=== PATIENT | male | born 1980 | race Two or more races ===

== ENCOUNTER 2023-01-25 10:37 | Emergency (ER) | payer MEDICAID, SELFPAY ==
--- NOTE | ~2023-01-25 | CT_ITS ---
EXAMINATION: CT HEAD WITHOUT CONTRAST CLINICAL INFORMATION: Mental status change. COMPARISON: None available. TECHNIQUE: Contiguous axial imaging was performed from the skull base to vertex without intravenous administration of contrast. This CT examination was performed using dose optimization techniques as appropriate, variously including the following: *Automated exposure control *Adjustment of mA and/or kV according to patient size (this includes techniques or standardized protocols for targeted exams where dose is matched to indication/reason for exam; i.e. extremities or head) *Use of iterative reconstruction technique DLP: 775 mGy-cm FINDINGS: The brain parenchyma has normal attenuation. The martínez-white matter differentiation is well preserved. No evidence of an acute major vascular territory infarction. No intracranial hemorrhage, extra-axial fluid collection, focal mass effect or midline shift. The ventricles have normal size and configuration; no hydrocephalus. The brainstem and cerebellum have a normal appearance. The cerebellar tonsils are in normal position. The calvarium is intact. Mild amount mucus/mucosal thickening of some of the bilateral ethmoid air cells. Otherwise, the visualized paranasal sinuses, mastoid air cells and middle ear cavities are well aerated. The orbits and globes are unremarkable. The temporomandibular joints are normal. CT/CT head/brain wo IV con IMPRESSION: No acute intracranial pathology.
[2023-01-25 10:41] VITALS: BP 160/84; PULSE 81; RESP 16; TEMP 36.8; O2SAT 92; BMI 34.6
[2023-01-25 10:53] VITALS: PULSE 83; RESP 15; O2SAT 95
--- NOTE | 2023-01-25 10:57 | MHC.EDTECH ---
POC obtained 101 RN aware
[2023-01-25 11:00] LABS: Glucose, Whole Blood 101 mg/dL (60-115)
--- NOTE | 2023-01-25 11:05 | ED.GENADULT ---
HPI - General Adult General Chief complaint: ETOH/Substance Use Stated complaint: ETOH? Time Seen by Provider: 01/25/23 10:47 Source: patient Mode of arrival: ambulatory Limitations: no limitations History of Present Illness HPI narrative: This is a 42 years old brought in by the girfriend the because of confusion. Girlfriend states the patient was cough confused this morning she is not sure if he has been drinking or using drugs. There is no reported fever no reported vomiting no reported diarrhea patient arrived ambulatory to the emergency room a he states that he feels good Onset (ago): hour(s) (4) Radiation: non-radiation Severity: mild Pain Consistency: constant Relieving factors: none Exacerbating factors: none Related Data Allergies Allergy/AdvReac Type Severity Reaction Status Date / Time No Known Allergies Allergy Verified 01/25/23 10:39 Review of Systems Constitutional: Constitutional: Reports no additional constitutional complaints ENT: Reports as per HPI Cardiovascular: Cardiovascular: Reports no additional cardiovascular complaints Respiratory: Respiratory: Reports no additional respiratory complaints Gastrointestinal: Gastrointestinal: Reports no additional gastrointestinal complaints [facility] Past Medical History Attestation statement: The following information was validated with the patient. [facility] Narrative: denies Social History Social History Advance Directives: No Physical Exam ED Vital Signs: Vital Signs - 24 hr 01/25/23 10:41 01/25/23 10:53 01/25/23 14:35 Temperature 98.3 F Pulse Rate 81 83 94 Respiratory Rate 16 15 15 Blood Pressure 160/84 H 149/77 H Pulse Oximetry 92 95 97 Oxygen Delivery Method Room Air Room Air Room Air BMI result Body Mass Index 34.6 Const General: cooperative, comfortable, no acute distress, well developed, alert, awake and Physically active Nutritional Appearance: well nourished Limitations: no limitations [facility] Head: Yes normal to inspection Ears: hearing grossly normal bilaterally General nose exam: Normal nares present Face and sinus: Yes normal facial exam Mouth: Normal oral and palatal mucosa present Throat: Yes posterior oropharynx normal Neck Neck: Yes normal visual inspection, Yes full ROM and Yes no lymphadenopathy Chest Chest palpation & inspection: normal inspection of the chest Resp Effort & Inspection: normal respiratory effort Auscultation: clear to auscultation bilaterally Cardio Jugular venous distension: no JVD Rate: regular rate Rhythm: regular rhythm GI Inspection: Yes normal to inspection Palpation (GI): Soft to palpation, not firm, nontender and no guarding Percussion: Yes normal to percussion General: Yes no CVA tenderness Back/Spine/Pelvis Back: no CVA tenderness Skin General skin exam: no rashes or lesions noted and elasticity normal Lesions: no lesions Rashes: rash noted Neuro Other: No focal deficit cranial nerve 2-12 intact no strength in the lower extremity or upper extremity Course Reevaluation(s) Reevaluation #1: doing better eating dinner,DIEUDONNE pos for cocaine and pos for Phencyclidine. He is refusing detox He is not SI and HI Time: 14:09 Reevaluation #2: continue to improve states that he used drugs because mother 1 Month ago,but he is not SI nor HI . States that he would like to be d/c he does not want to talk to crisis he is not SI and HI. At this time his gait is stable he has decision making capacity Time: 15:52 Reevaluation #3: girlfriend here to pick him up Time: 16:16 Additional Reevaluation(s): girfriend here to pick him up Medications Administered Discontinued Medications Generic Name Dose Route Start Last Admin Trade Name Freq PRN Reason Stop Dose Admin Sodium Chloride 1,000 mls @ 999 mls/hr 01/25/23 11:00 01/25/23 13:45 Ns IVCONT 01/25/23 12:00 Infused .Q1H1M DOROTHY Infusion Sodium Chloride 1,000 mls @ 999 mls/hr 01/25/23 11:45 01/25/23 15:39 Ns IVCONT 01/25/23 12:45 Infused .Q1H1M DOROTHY Infusion Medical Decision Making Medical Decision Making [facility] Narrative: Patient presented with mental status changes will obtain labs imaging toxicology study in reassessed Differential Diagnosis Differential Diagnoses: The differential diagnosis associated with the presentation includes Alcohol intoxication/drug abuse/a subdural hematoma/epidural hematoma Lab Data [facility] Lab Attestation statement: I reviewed the patient's lab results. 01/25/23 11:09 01/25/23 11:09 Labs: Lab Results 01/25/23 01/25/23 01/25/23 Range/Units 10:56 11:09 12:39 WBC 7.8 (4.8-10.8) X10*3/uL RBC 5.18 (4.60-5.80) X10*6/uL Hgb 15.1 (14.0-18.0) g/dl Hct 43.9 (42.0-52.0) % MCV 84.7 (80.0-98.0) fL MCH 29.2 (27.0-33.0) pg MCHC 34.4 (31.0-36.0) g/dl RDW 12.8 (11.0-16.0) % Plt Count 215 (160-400) X10*3/uL MPV 10.2 (9.4-12.4) fL Immature Gran % (Auto) 0.3 (0.0-0.4) % Neut % (Auto) 62.3 (45-73) % Lymph % (Auto) 27.0 (20-40) % [place] % (Auto) 7.3 (2-11) % Eos % (Auto) 2.6 (0-4) % Baso % (Auto) 0.5 (0-2) % Lymph # (Auto) 2.1 (1.2-4.9) X10*3/uL [place] # (Auto) 0.6 (0.1-1.2) X10*3/uL Eos # (Auto) 0.2 (0.0-0.4) X10*3/uL Baso # (Auto) 0.0 (0.0-0.2) X10*3/uL Abs Immat Gran (auto) 0.02 (0.00-0.03) X10*3/uL Absolute Neuts (auto) 4.9 (2.0-8.3) x10*3/uL Absolute Nucleated RBC 0.000 (0.0-0.012) X10*3/uL Nucleated RBC % (auto) 0.0 (0.0-0.2) /100WBC Sodium 138 (135-145) mmol/L Potassium 3.8 (3.3-5.1) mmol/L Chloride 106 (96-108) mmol/L Carbon Dioxide 24 (22-29) mmol/L Anion Gap 12 (12-20) BUN 9 (9-16) mg/dL Creatinine 0.94 (0.5-1.4) mg/dL Estim Creat Clear Calc 137.2 Estimated GFR > 60 POC Glucose 101 (60-115) mg/dL Random Glucose 95 (60-115) mg/dL Calcium 8.8 (8.4-10.2) mg/dL Total Bilirubin 0.3 (0.0-1.0) mg/dL AST 15 (5-37) U/L ALT 16 (0-40) U/L Alkaline Phosphatase 78 (39-117) U/L Troponin I High Sens < 2.7 (<3.5-35.0) ng/L Total Protein 6.8 (6.5-8.0) g/dL Albumin 4.2 (3.5-5.0) g/dL Urine Color Yellow Urine Appearance Clear Urine pH 6.5 (5.0-9.0) Ur Specific [place] <= 1.005 (1.005-1.025) Urine Protein Negative (Neg-Trace) mg/dL Urine Glucose (UA) Negative (Negative) mg/dL Urine Ketones Negative (Negative) mg/dL Urine Blood Negative (Negative) Urine Nitrite Negative (Negative) Ur Leukocyte Esterase Negative (Negative) Urine RBC 0-2 (0-2) /HPF Urine WBC 0-5 (0-5) /HPF Ur Squamous Epith Cells 0-2 (0-2) /HPF Urine Bacteria None Seen (None Seen) Hyaline Casts 0-2 (0-2) /LPF Urine Opiates Screen Not Detected (Not Detect) Urine Fentanyl Screen Not Detected (Not Detect) Ur Barbiturates Screen Not Detected (Not Detect) Ur Phencyclidine Scrn POSITIVE H (Not Detect) Ur Amphetamines Screen Not Detected (Not Detect) U Benzodiazepines Scrn Not Detected (Not Detect) Urine Cocaine Screen POSITIVE H (Not Detect) U Marijuana (THC) Screen Not Detected (Not Detect) Ethyl Alcohol 11 mg/dL Independent Historian Clinical information obtained from an independent historian. History obtained from or confirmed by: Friend Discharge Plan Discharge Clinical Impression: Drug abuse Patient Disposition: Home, Self-Care Instructions: Polysubstance Abuse (ED) Referrals: Physician,Unknown J [Primary Care Provider] - 2 days
[2023-01-25 11:15] LABS: MANUAL DIFF FLAG NO
[2023-01-25] MEDS: 0.9 % Sodium Chloride 1,000 ML 999 ML IVCONT ×2 (11:15→13:45)
[2023-01-25 11:16] LABS: Basophils Percent Auto 0.5 % (0-2); Eosinophils Absolute Auto 0.2 X10*3/uL (0.0-0.4); Eosinophils Percent Auto 2.6 % (0-4); Hematocrit 43.9 % (42.0-52.0); Hemoglobin 15.1 g/dl (14.0-18.0); Imm Gran Abs Auto 0.02 X10*3/uL (0.00-0.03); Imm Gran Pct Auto 0.3 % (0.0-0.4); Lymphocytes Absolute Auto 2.1 X10*3/uL (1.2-4.9); Mean Corpuscular HGB Conc 34.4 g/dl (31.0-36.0); Mean Corpuscular Hemoglobin 29.2 pg (27.0-33.0); Mean Corpuscular Volume 84.7 fL (80.0-98.0); Mean Platelet Volume 10.2 fL (9.4-12.4); Monocytes Absolute Auto 0.6 X10*3/uL (0.1-1.2); Monocytes Percent Auto 7.3 % (2-11); Neutrophils Absolute Auto 4.9 x10*3/uL (2.0-8.3); Neutrophils Percent Auto 62.3 % (45-73); Platelet Count 215 X10*3/uL (160-400); Red Blood Count 5.18 X10*6/uL (4.60-5.80); Red Cell Distribution Width 12.8 % (11.0-16.0); White Blood Count 7.8 X10*3/uL (4.8-10.8)
--- NOTE | 2023-01-25 11:28 | PC.NURSE ---
patient presented with girlfriend, she states she last saw patient around 0745. she called pt to go to [facility] since he was not home, [facility] [place] and did not know where he was. girlfriend found patient in his car with an open twisted tea, very confused, became emotional and crying. patient denies any alcohol use, drug use. states he does not remember why he drove himself. patient denies any headache, falls. patient states he feels as if he is normal
[2023-01-25 11:30] LABS: Alanine Aminotransferase 16 U/L (0-40); Albumin Level 4.2 g/dL (3.5-5.0); Alkaline Phosphatase 78 U/L (39-117); Anion Gap 12 (12-20); Aspartate Amino Transferase 15 U/L (5-37); Bilirubin Total 0.3 mg/dL (0.0-1.0); Blood Urea Nitrogen 9 mg/dL (9-16); Calcium 8.8 mg/dL (8.4-10.2); Carbon Dioxide 24 mmol/L (22-29); Chloride 106 mmol/L (96-108); Creatinine Clr Calc Pharmacy 137.2; Estimated Glomerular Filt Rate > 60; Ethanol 11 mg/dL; Glucose Random 95 mg/dL (60-115); Potassium 3.8 mmol/L (3.3-5.1); Sodium 138 mmol/L (135-145); Total Protein 6.8 g/dL (6.5-8.0)
[2023-01-25 11:40] LABS: Troponin-I High Sensitivity < 2.7 ng/L (<3.5-35.0)
[2023-01-25 12:47] LABS: Appearance Urine Clear; Color Urine Yellow; Glucose Urine UA Negative (Negative); Leukocyte Esterase Urine Negative (Negative); Nitrite Urine Negative (Negative); PH 6.5 (5.0-9.0); Specific Gravity - Urine <= 1.005 (1.005-1.025); Urine Blood Negative (Negative); Urine Ketones Negative (Negative); Urine Protein Negative (Neg-Trace)
[2023-01-25 12:52] LABS: Bacteria Urine None Seen (None Seen); Hyaline Casts Urine 0-2 /LPF (0-2); RBC Urine 0-2 /HPF (0-2); Squamous Epithelial Cell Urine 0-2 /HPF (0-2); WBC Urine 0-5 /HPF (0-5)
[2023-01-25 12:54] LABS: Amphetamine Screen Urine Not Detected (Not Detect); Barbiturates, Urine Not Detected (Not Detect); Benzodiazepines Screen Urine Not Detected (Not Detect); Cannabinoid Screen Urine Not Detected (Not Detect); Cocaine Screen Urine POSITIVE (Not Detect); Fentanyl, urine Not Detected (Not Detect); Opiate Screen Urine Not Detected (Not Detect); Phencyclidine Screen Urine POSITIVE (Not Detect)
--- NOTE | 2023-01-25 13:25 | PC.NURSE ---
patient is tearful and crying in room regarding the of his mother 2 months ago. family at bedside with patient
--- NOTE | 2023-01-25 13:46 | PC.NURSE ---
Addendum entered by Tamara Ann RN 01/25/23 14:49: patient denied detox, denies SI/HI Original Note: patient is alert, still has confusion. unable to answer where he is or what day it is. patient has no memory of what happened prior to coming to the hospital. patient has fluids running per MAY, given lunch. patient on tele monitor, call solitario within reach.
[2023-01-25 14:35] VITALS: BP 149/77; PULSE 94; RESP 15; O2SAT 97
--- NOTE | 2023-01-25 15:20 | PC.NURSE ---
pt increasingly agitated while talking on the phone with his sister regarding wanting to leave the hospital, spoke w sister who reports pt is making SI statements and needs help, this nurse didn't hear pt making statements, when asked if he's having any thoughts of hurting himself or anyone else, pt denied, stated he was having worsening depression d/t recent of mother. pt appears confused as to why he is at the hospital, doesn't know where he is, but is oriented to person, date, year. plan for pt to talk to CARE team, pt is not sectioned at this time. provider is aware of pt's increasing agitation.
--- NOTE | 2023-01-25 15:33 | PC.NURSE ---
pt pulled out IV, continues to deny SI, given sandwiches, agreeable to finding sober ride home.
== END 2023-01-25 16:29 | disposition home or self-care (01) ==
PROVIDERS: Emergency Provider Emergency Medicine
DX: F19.10 Other psychoactive substance abuse, uncomplicated (principal); R41.82 Altered mental status, unspecified
CPT/HCPCS: 36415; 70450; 80053; 80307; 81001; 82947; 84484; 85025; 96360; 96361; 99284